=== PATIENT | male | born 1990 | race Caucasian/White ===

== ENCOUNTER 2017-09-09 09:59 | Emergency (ER) | payer MEDICAID ==
[~2017-09-09] VITALS: Ht 165.1 cm; Wt 71.8 kg
[~2017-09-09 09:59] MED LIST: AZIT500T2 PO; METH4TAB81 PO
[2017-09-09] MEDS ORDERED: tamsulosin 0.4mg capsule PO STA (11:30)
[2017-09-09 12:15] LABS: CLARITY,URINE Clear (Clear); COLOR,URINE Yellow (Yellow); GLUCOSE, URINE Negative (Neg); KETONES,URINE Negative (Neg); LEUKOCYTE ESTERASE ,URINE Negative (Neg); NITRITES, URINE Negative (Neg); OCCULT BLOOD,URINE Negative (Neg); PH,URINE 6.5 (4.8-8.0); PROTEIN,URINE Negative (Neg)
[2017-09-09 12:22] LABS: UA COLLECTION TYPE FOLEY CATH
[2017-09-09] MEDS ORDERED: FLO0.4C PO (12:24)
[2017-09-09 13:19] VITALS: BP 150/90
== END 2017-09-09 12:55 | disposition home or self-care (01) ==
LOC: ER 10:00
DX: R33.9 Retention of urine, unspecified (principal); Z88.0 Allergy status to penicillin; Z88.1 Allergy status to other antibiotic agents; Z79.899 Other long term (current) drug therapy
CPT/HCPCS: 36415; 51702; 81003; 87491; 87591; 99285; A4315

== ENCOUNTER 2017-09-13 11:11 | Emergency (ER) | payer MEDICAID ==
[~2017-09-13] VITALS: Ht 165.1 cm; Wt 70.9 kg
[~2017-09-13 11:11] MED LIST changes: +FLO0.4C PO
[2017-09-13 11:20] VITALS: BP 143/80
== END 2017-09-13 11:55 | disposition home or self-care (01) ==
LOC: ER 11:11
DX: Z46.89 Encounter for fitting and adjustment of other specified devices (principal); Z88.2 Allergy status to sulfonamides; Z88.0 Allergy status to penicillin; Z79.899 Other long term (current) drug therapy
CPT/HCPCS: 99281

== ENCOUNTER 2018-05-17 22:48 | Emergency (ER) | payer MEDICAID ==
[~2018-05-17] VITALS: Ht 165.1 cm; Wt 72.0 kg
[~2018-05-17 22:48] MED LIST changes: -FLO0.4C PO
[2018-05-17 22:49] VITALS: BP 135/92
[2018-05-17] MEDS ORDERED: LIDOcaine 1% 30ml preserv. free vial IJ ONE (23:15)
[2018-05-17] MEDS ORDERED: TETanus/Pertussis (Acell)/Diphther VAC/PF (Tdap-Adult) 0.5ml syringe IM ONE (23:15)
[2018-05-17] MEDS ORDERED: LIDOcaine 1% (10mg/ml) 2ml vial ONE (23:30)
== END 2018-05-18 00:38 | disposition home or self-care (01) ==
LOC: ER 22:49
DX: S61.213A Laceration without foreign body of left middle finger without damage to nail, initial encounter (principal); Z88.0 Allergy status to penicillin; Z88.1 Allergy status to other antibiotic agents; Z79.899 Other long term (current) drug therapy; W26.0XXA Contact with knife, initial encounter; Y93.89 Activity, other specified; Y92.89 Other specified places as the place of occurrence of the external cause; Y99.8 Other external cause status
CPT/HCPCS: 12001; 90471; 90715; 99283; J3490

== ENCOUNTER 2019-03-16 17:16 | Emergency (ER) | payer MEDICAID ==
[~2019-03-16] VITALS: Ht 162.6 cm; Wt 63.0 kg
[2019-03-16 17:28] VITALS: BP 132/79
[2019-03-16] MEDS ORDERED: ONDA4TAB12 PO (18:22)
== END 2019-03-16 19:15 | disposition home or self-care (01) ==
LOC: ER 17:16
DX: R50.9 Fever, unspecified (principal); B34.9 Viral infection, unspecified; Z88.1 Allergy status to other antibiotic agents; Z88.0 Allergy status to penicillin; Z79.2 Long term (current) use of antibiotics
CPT/HCPCS: 99283

== ENCOUNTER 2021-08-18 16:39 | Emergency (ER) | payer MEDICAID ==
[~2021-08-18] VITALS: Ht 162.6 cm; Wt 77.3 kg
[~2021-08-18 16:39] MED LIST changes: +ONDA4TAB12 PO
[2021-08-18 16:57] VITALS: BP 130/84
[2021-08-18] MEDS ORDERED: DOXYCYCLINE 100MG CAPSULE PO STA (17:46)
[2021-08-18] MEDS ORDERED: dexamethasone 4mg tablet PO ONE (17:50)
[2021-08-18] MEDS ORDERED: DOXY100C76 PO (18:44)
== END 2021-08-18 18:53 | disposition home or self-care (01) ==
LOC: ER 16:40
DX: J06.9 Acute upper respiratory infection, unspecified (principal); H66.92 Otitis media, unspecified, left ear; Z72.89 Other problems related to lifestyle; Z79.899 Other long term (current) drug therapy; Z88.0 Allergy status to penicillin; Z88.1 Allergy status to other antibiotic agents
CPT/HCPCS: 87502; 87503; 99283

== ENCOUNTER 2021-10-10 13:35 | Emergency (ER) | payer MEDICAID ==
[~2021-10-10] VITALS: Ht 162.6 cm; Wt 80.9 kg
[2021-10-10 13:43] VITALS: BP 145/97
[2021-10-10] MEDS ORDERED: mag hydrox/Alum hydrox/simeth 30ml oral suspension PO ONE (14:20)
[2021-10-10] MEDS ORDERED: LIDOcaine Viscous 15ml cup MM ONE (14:20)
[2021-10-10] MEDS ORDERED: pantoprazole 40mg Tablet.DR PO ONE (14:20)
== END 2021-10-10 15:24 | disposition home or self-care (01) ==
LOC: ER 13:36
DX: R07.89 Other chest pain (principal); Z88.0 Allergy status to penicillin; Z88.1 Allergy status to other antibiotic agents
CPT/HCPCS: 93005; 99284

== ENCOUNTER 2021-10-21 11:44 | Emergency (ER) | payer MEDICAID ==
[~2021-10-21] VITALS: Ht 165.1 cm; Wt 80.9 kg
[2021-10-21] MEDS ORDERED: bacitracin 15gm ointment TP ONE (12:55)
[2021-10-21] MEDS ORDERED: TETanus/Pertussis (Acell)/Diphther VAC/PF (Tdap-Adult) 0.5ml syringe IMVAC ONE (12:55)
[2021-10-21 13:15] VITALS: BP 124/84
== END 2021-10-21 13:30 | disposition home or self-care (01) ==
LOC: ER 11:45
DX: S91.312A Laceration without foreign body, left foot, initial encounter (principal); Z72.89 Other problems related to lifestyle; Z86.19 Personal history of other infectious and parasitic diseases; Z88.0 Allergy status to penicillin; Z88.8 Allergy status to other drugs, medicaments and biological substances; Z79.2 Long term (current) use of antibiotics; Z79.899 Other long term (current) drug therapy; W01.119A Fall on same level from slipping, tripping and stumbling with subsequent striking against unspecified sharp object, initial encounter; Y93.89 Activity, other specified; Y92.89 Other specified places as the place of occurrence of the external cause; Y99.8 Other external cause status
CPT/HCPCS: 73620; 90471; 90715; 99283

== ENCOUNTER 2021-12-26 08:54 | Emergency (ER) | payer MEDICAID ==
[~2021-12-26] VITALS: Ht 162.6 cm; Wt 75.9 kg
[2021-12-26] MEDS ORDERED: normal saline 1000ML IV soln IV ONE (09:40)
[2021-12-26] MEDS ORDERED: metoclopramide 5 mg/ml inj IV ONE (09:50)
[2021-12-26 10:02] LABS: BASOPHILS % (AUTO) 0.2 % (0-1); EOSINOPHILS % (AUTO) 0.4 % (0-6); HEMATOCRIT 43.3 % (42.0-52.0); HEMOGLOBIN 14.7 g/dl (14.0-17.9); LYMPHOCYTES # (AUTO) 0.6 X10'3 (1.1-4.8); LYMPHOCYTES % (AUTO) 8.6 % (21-51); MEAN CORPUSCULAR HEMOGLOBIN 28.3 PG (27.0-31.0); MEAN CORPUSCULAR HGB CONC 33.8 g/dL (33.0-36.5); MEAN CORPUSCULAR VOLUME 83.7 FL (78-98); MEAN PLATELET VOLUME 8.2 FL (7.4-10.4); MONOCYTES # (AUTO) 0.6 X10'3 (0-0.9); NEUTROPHILS # (AUTO) 5.6 X10'3 (1.8-7.7); NEUTROPHILS % (AUTO) 81.8 % (42-75); PLATELET COUNT 187 X10'3 (140-440); RED BLOOD COUNT 5.18 X10'6 (4.70-6.10); RED CELL DISTRIBUTION WIDTH 12.9 % (11.5-14.5); WHITE BLOOD COUNT 6.9 X10'3 (4.5-11.0)
--- NOTE | 2021-12-26 10:15 | NUR ---
PATIENT'S MOTHER CAME TO NURSE'S STATION STATING PATIENT YELLING "GET IT OUT, GET IT OUT" TO HIS IV. PATIENT FOUND SUPINE IN GUERNY WITH EYES CLOSED, STATES HE FELT BURNING TO IV SITE AND NUMBNESS THROUGHOUT BODY. HR 103, BP 139/85, PATIENT PRACTICING THERAPEUTIC DEEP BREATHING WITH IMPROVEMENT ON SYMPTOMS PER PATIENT. CALL LIGHT IN HAND, ALL SAFETY MEASURES IN PLACE, WILL CONTINUE TO MONITOR.
[2021-12-26 10:16] LABS: ALANINE AMINOTRANSFERASE 30 U/L (12-78); ALBUMIN 4.2 G/DL (3.4-5.0); ALBUMIN/GLOBULIN RATIO 1.2 (1.1-1.5); ALKALINE PHOSPHATASE 127 IU/L (46-116); ANION GAP 10 (8-16); ASPARTATE AMINO TRANSFERASE 17 U/L (10-37); BILIRUBIN,TOTAL 0.4 MG/DL (0.1-1.0); BLOOD UREA NITROGEN 10 MG/DL (7-18); BUN/CREATININE RATIO 12.5 (5.4-32.0); CALCIUM 9.2 MG/DL (8.5-10.1); CHLORIDE 104 MMOL/L (99-107); GLUCOSE 99 MG/DL (70-104); POTASSIUM 3.6 MMOL/L (3.5-5.1); SODIUM 139 MMOL/L (135-145); TOTAL CARBON DIOXIDE 24.7 MMOL/L (24-32); TOTAL PROTEIN 7.8 G/DL (6.4-8.2); eGFR > 90 ML/MIN
[2021-12-26] MEDS ORDERED: ringers solution, lacted 1,000 ML IV ONE (10:50)
[2021-12-26] MEDS ORDERED: ONDA4TAB12 PO (12:22)
[2021-12-26] MEDS ORDERED: NIRM1TAB PO (12:39)
[2021-12-26 12:40] VITALS: BP 124/86
== END 2021-12-26 12:42 | disposition home or self-care (01) ==
LOC: ER 08:55
DX: U07.1 COVID-19 (principal); R50.9 Fever, unspecified; R11.10 Vomiting, unspecified; F32.A Depression, unspecified; Z98.890 Other specified postprocedural states; Z72.89 Other problems related to lifestyle; Z88.0 Allergy status to penicillin; Z88.8 Allergy status to other drugs, medicaments and biological substances; Z79.2 Long term (current) use of antibiotics; Z79.899 Other long term (current) drug therapy
CPT/HCPCS: 36415; 80053; 83605; 85025; 87502; 87503; 87635; 96361; 96374; 99283; C9803; J2765; J7030; J7120

== ENCOUNTER 2022-10-21 22:53 | Emergency (ER) | payer MEDICAID ==
[~2022-10-21] VITALS: Ht 162.6 cm; Wt 81.8 kg
[~2022-10-21 22:53] MED LIST changes: +NIRM1TAB PO
[2022-10-21 23:20] VITALS: TEMP 98.9
[2022-10-21 23:20] LABS: MONOCYTES # (AUTO) 0.5 X10'3 (0-0.9)
[2022-10-21 23:21] LABS: BASOPHILS # (AUTO) 0.1 X10'3 (0-0.2); BASOPHILS % (AUTO) 0.8 % (0-1); EOSINOPHILS # (AUTO) 0.2 X10'3 (0-0.9); EOSINOPHILS % (AUTO) 2.1 % (0-6); HEMATOCRIT 40.9 % (42.0-52.0); HEMOGLOBIN 14.1 g/dl (14.0-17.9); LYMPHOCYTES # (AUTO) 3.4 X10'3 (1.1-4.8); LYMPHOCYTES % (AUTO) 39.5 % (21-51); MEAN CORPUSCULAR HEMOGLOBIN 28.6 PG (27.0-31.0); MEAN CORPUSCULAR HGB CONC 34.5 g/dL (33.0-36.5); MEAN CORPUSCULAR VOLUME 82.7 FL (78-98); MEAN PLATELET VOLUME 7.9 FL (7.4-10.4); MONOCYTES % (AUTO) 5.7 % (2-12); NEUTROPHILS # (AUTO) 4.4 X10'3 (1.8-7.7); NEUTROPHILS % (AUTO) 51.9 % (42-75); PLATELET COUNT 226 X10'3 (140-440); RED BLOOD COUNT 4.94 X10'6 (4.70-6.10); RED CELL DISTRIBUTION WIDTH 12.8 % (11.5-14.5); WHITE BLOOD COUNT 8.5 X10'3 (4.5-11.0)
[2022-10-21 23:31] LABS: ALANINE AMINOTRANSFERASE 72 U/L (12-78); ALBUMIN/GLOBULIN RATIO 1.2 (1.1-1.5); ALKALINE PHOSPHATASE 144 IU/L (46-116); ANION GAP 9 (8-16); ASPARTATE AMINO TRANSFERASE 33 U/L (10-37); BILIRUBIN,TOTAL 0.5 MG/DL (0.1-1.0); BLOOD UREA NITROGEN 15 MG/DL (7-18); BUN/CREATININE RATIO 17.2 (10.0-20.0); CALCIUM 8.9 MG/DL (8.5-10.1); CHLORIDE 104 MMOL/L (99-107); CREATININE 0.87 MG/DL (0.60-1.10); GLUCOSE 97 MG/DL (70-104); POTASSIUM 3.6 MMOL/L (3.5-5.1); SODIUM 140 MMOL/L (135-145); TOTAL CARBON DIOXIDE 27.3 MMOL/L (24-32); TOTAL PROTEIN 7.4 G/DL (6.4-8.2); eGFR > 90 ML/MIN
[2022-10-22 01:49] VITALS: BP 136/104; PULSE 68; RESP 17; O2SAT 99
== END 2022-10-22 01:51 | disposition home or self-care (01) ==
LOC: ER 22:54
DX: R07.9 Chest pain, unspecified (principal); R42 Dizziness and giddiness; R06.02 Shortness of breath; F32.A Depression, unspecified; Z88.8 Allergy status to other drugs, medicaments and biological substances; Z88.0 Allergy status to penicillin; Z79.899 Other long term (current) drug therapy; Z79.1 Long term (current) use of non-steroidal anti-inflammatories (NSAID)
CPT/HCPCS: 36415; 71045; 80053; 83880; 84484; 85025; 93005; 99285